=== PATIENT | male | born 1995 | race Caucasian/White ===

== ENCOUNTER 2017-07-04 09:57 | Emergency (ER) | payer OTHER, SELFPAY ==
--- NOTE | 2017-07-04 10:57 | RAD ---
2 VIEWS CHEST: Date: 07/04/17 COMPARISON: 05/29/14. HISTORY: Cough and confusion. FINDINGS: Two views of the chest show normal sized cardiomediastinal silhouette. There is no evidence of consol idation, mass, or pleural effusion. The bones are unremarkable. IMPRESSION: No evidence of acute cardiopulmonary disease. POS: [facility]
== END 2017-07-04 11:28 | disposition home or self-care (01) ==
LOC: ERS 09:57
DX: B34.9 Viral infection, unspecified (principal); F32.9 Major depressive disorder, single episode, unspecified; F90.9 Attention-deficit hyperactivity disorder, unspecified type
CPT/HCPCS: 71046; 87081; 87430; 87804